=== PATIENT | male | born 1980 | race African-American/Black ===

== ENCOUNTER 2016-04-14 09:41 | Emergency (ER) | payer OTHER ==
[~2016-04-14] VITALS: Ht 177.8 cm; Wt 88.9 kg
[~2016-04-14 09:41] MED LIST: AIRBORNE TABLE1 EAC1; APAP/CODEINE ELI5 M1 OR; KEFLEX500 MG PO; NYQUIL D COLD295 ML; TESSALON PERLE100 MG PO
[2016-04-14 09:43] VITALS: BP 119/79
[2016-04-14] MEDS ORDERED: IBUPROFEN 600600 M1 PO (09:51)
[2016-04-14] MEDS ORDERED: ULTRAM 50MG TAB50 MG PO (10:20)
[2016-04-14] MEDS ORDERED: NAPROSYN500 MG PO (10:20)
== END 2016-04-14 10:22 | disposition home or self-care (01) ==
LOC: ER 09:41
DX: S51.811D Laceration without foreign body of right forearm, subsequent encounter (principal); S81.011D Laceration without foreign body, right knee, subsequent encounter; S61.219D Laceration without foreign body of unspecified finger without damage to nail, subsequent encounter; Z48.01 Encounter for change or removal of surgical wound dressing; F17.210 Nicotine dependence, cigarettes, uncomplicated; F10.99 Alcohol use, unspecified with unspecified alcohol-induced disorder

== ENCOUNTER 2018-08-01 08:09 | Emergency (ER) | payer OTHER ==
[~2018-08-01] VITALS: Ht 175.3 cm; Wt 86.2 kg
[~2018-08-01 08:09] MED LIST changes: +IBUPROFEN 600600 M1 PO; +NAPROSYN500 MG PO; +ULTRAM 50MG TAB50 MG PO
[2018-08-01] MEDS ORDERED: PROMETH-CODEIN 65 ML PO (10:06)
[2018-08-01] MEDS ORDERED: ZOFRAN ODT4 MG PO (10:06)
[2018-08-01 10:31] VITALS: BP 115/77
== END 2018-08-01 10:32 | disposition home or self-care (01) ==
LOC: ER 08:09
DX: J98.9 Respiratory disorder, unspecified (principal); R11.2 Nausea with vomiting, unspecified; J45.909 Unspecified asthma, uncomplicated; M19.90 Unspecified osteoarthritis, unspecified site; F17.210 Nicotine dependence, cigarettes, uncomplicated

== ENCOUNTER 2018-10-17 07:13 | Emergency (ER) | payer OTHER ==
[~2018-10-17] VITALS: Ht 175.3 cm; Wt 86.2 kg
[~2018-10-17 07:13] MED LIST changes: +PROMETH-CODEIN 65 ML PO; +ZOFRAN ODT4 MG PO
[2018-10-17 07:14] VITALS: BP 109/67
== END 2018-10-17 07:39 | disposition left against medical advice (07) ==
LOC: ER 07:13
DX: Z53.21 Procedure and treatment not carried out due to patient leaving prior to being seen by health care provider (principal)

== ENCOUNTER 2018-12-04 11:31 | Emergency (ER) | payer OTHER ==
[~2018-12-04] VITALS: Ht 177.8 cm; Wt 86.2 kg
[2018-12-04 12:36] LABS: ABSOLUTE NEUTROPHILS 2.7 thou/uL (1.4-8.2); BASOPHILS 0.6 % (0.0-2.0); EOSINOPHILS 4.2 % (0.0-3.0); HEMATOCRIT 53.2 % (42.0-52.0); HEMOGLOBIN 17.8 gm/dL (14.0-18.0); LYMPHOCYTES 30.6 % (24.0-44.0); MCH 31.5 pg (26.0-34.0); MCHC 33.4 g/dL (28.0-37.0); MCV 94.3 fL (80.0-100.0); PLATELET COUNT 284 thou/uL (150-400); POLYS 55.6 % (36.0-66.0); RBC 5.64 mil/uL (4.50-6.00); RDW 14.6 % (10.5-14.5); WBC 4.8 thou/uL (4.0-11.0)
[2018-12-04 12:38] LABS: ANION GAP 7 mmol/L (7-16); BUN 7 mg/dL (7-18); CALCIUM 9.4 mg/dL (8.5-10.1); CHLORIDE 102 mmol/L (98-107); CO2 27 mmol/L (21-32); CREATININE 1.3 mg/dL (0.7-1.3); GLUCOSE 102 mg/dL (74-106); POTASSIUM 3.9 mmol/L (3.5-5.1); SODIUM 136 mmol/L (136-145)
[2018-12-04 12:48] LABS: ALBUMIN 3.7 g/dL (3.4-5.0); SGOT 37 U/L (15-37); SGPT 30 U/L (30-65); TOTAL BILIRUBIN 0.5 mg/dL (<0.1-1.0); TOTAL PROTEIN 8.1 g/dL (6.4-8.2); TROPONIN-I <0.06 ng/mL (<0.06)
[2018-12-04] MEDS ORDERED: NAPROSYN500 MG PO (13:42)
[2018-12-04] MEDS ORDERED: NORFLEX100 MG PO (13:42)
[2018-12-04 13:49] VITALS: BP 113/79
--- NOTE | 2018-12-05 08:44 | EKG ---
[address] [address] ELECTROCARDIOGRAM REPORT Name: MALIA WOODS Room #: DEP [facility]#: [id number] ������������������ Admission: 12/04/18 ������������������ Attend Phys: Discharge: 12/04/18 ������������������ Date of : 78 Report #: [id number] ����������������������������������������������������������������� [id number] THIS REPORT FOR: //name// [facility] ED Test Date: 2018-12-04 Test Time: 11:52:00 Pat Name: MALIA WOODS Department: Room: Gender: M [employer] Instructor: GRETA : 1980 Requested By: Ciarra Trent Order Number: [id number] MD: Tommy Valero Measurements Intervals [place] Rate: 102 P: 73 UT: 139 QRS: 52 QRSD: 86 T: 32 QT: 330 QTc: 430 Interpretive Statements Sinus tachycardia ST elev, probable normal early repol pattern No previous ECG available for comparison Electronically Signed On 12-05-2018 8:43:51 CDT by Tommy Valero [email or web address] ��������������������������������������������� <ELECTRONICALLY SIGNED> ���������������������������������������� By: Tommy Valero MD, [facility] ��������������������������������������������� 12/05/18 [id number] 1152 Tommy Valero MD, FACC /EPI
== END 2018-12-04 13:54 | disposition home or self-care (01) ==
LOC: ER 11:31
PROVIDERS: Physician Assistant
DX: S29.012A Strain of muscle and tendon of back wall of thorax, initial encounter (principal); J45.909 Unspecified asthma, uncomplicated; M19.90 Unspecified osteoarthritis, unspecified site; F17.290 Nicotine dependence, other tobacco product, uncomplicated; W06.XXXA Fall from bed, initial encounter; Y92.89 Other specified places as the place of occurrence of the external cause; Y93.89 Activity, other specified; Y99.8 Other external cause status